=== PATIENT | female | born 1945 | race Caucasian/White ===

== ENCOUNTER 2017-07-15 14:19 | Outpatient (CLI) | payer MEDICARE, OTHER ==
--- NOTE | 2017-07-15 15:32 | RAD ---
PA AND LATERAL VIEWS OF THE CHEST: History: Acute bronchitis. FINDINGS: The heart size is normal. The lungs are well expanded without confluent areas of consolidation, pneum othoraces, or pleural effusions. There are degenerative changes in the spine. IMPRESSION: No radiographic evidence of acute cardiopulmonary process. POS: [facility]
== END 2017-07-15 14:20 | disposition home or self-care (01) ==
LOC: MADRAD 14:19
PROVIDERS: ATTEND Family Medicine
DX: J20.9 Acute bronchitis, unspecified (principal)
CPT/HCPCS: 71046